=== PATIENT | female | born 1990 | race African-American/Black ===

== ENCOUNTER 2020-02-16 15:49 | Inpatient (IN) | payer OTHER ==
[~2020-02-16] VITALS: Ht 177.8 cm; Wt 84.8 kg
[2020-02-16] MEDS ORDERED: MAGNESIUM/ALUMINUM HYDROXIDE/SIMETHICONE 30ML UDC PO STA (18:14)
[2020-02-16] MEDS ORDERED: ONDANSETRON HCL 4MG/2ML INJ IV STA (18:14)
[2020-02-16] MEDS ORDERED: VISCOUS LIDOCAINE 2% 15 ML UDC PO STA (18:14)
[2020-02-16] MEDS ORDERED: SODIUM CHLORIDE 0.9% 1,000 ML IV ONE (18:15)
[2020-02-16 18:26] LABS: HEMATOCRIT. 39.1 % (36.0-48.0); HEMOGLOBIN. 13.2 g/dL (12.0-16.0); MEAN CORPUSCULAR HEMOGLOBIN 32.1 pg (28.0-32.0); MEAN PLATELET VOLUME 8.6 fl (7.4-10.4); PLATELET 410 x1000/uL (130-400); RED BLOOD CELL COUNT 4.11 mill/uL (4.2-5.4); RED CELL DISTRIBUTION WIDTH 13.2 % (11.6-14.6)
[2020-02-16 18:35] LABS: CHLORIDE 105 mEq/L (98-107)
[2020-02-16 18:37] LABS: CLARITY URINE CLEAR (CLEAR); COLOR URINE YELLOW (YELLOW); KETONES URINE NEGATIVE (NEGATIVE); LEUKOCYTE ESTERASE URINE TRACE (NEGATIVE); NITRITE URINE NEGATIVE (NEGATIVE); OCCULT BLOOD URINE NEGATIVE (NEGATIVE); PH URINE 8.5 (4.5-8.0); PROTEIN URINE 1+ (NEGATIVE); SPECIFIC GRAVITY URINE 1.029 (1.005-1.030)
[2020-02-16 18:43] LABS: HCG SCREEN NEGATIVE
[2020-02-16 18:59] LABS: PLATELET ESTIMATE INCREASED
[2020-02-16] MEDS ORDERED: KETOROLAC 15MG/ML VIAL IV ONE (20:45)
[2020-02-17] VITALS: BP 126/89
[2020-02-17 00:08] VITALS: BP 126/89
[2020-02-17] MEDS ORDERED: ONDANSETRON HCL 4MG/2ML INJ IV PRN (01:15)
[2020-02-17] MEDS: CEFTRIAXONE 1,000 MG in DEXTROSE 5% WATER 50 ML IV SCH (03:17)
[2020-02-17 04:00] VITALS: BP 111/57
[2020-02-17] MEDS ORDERED: POTASSIUM CHLORIDE 20MEQ TABLET SR PO SCH (05:15)
[2020-02-17 08:00] VITALS: BP 116/79
[2020-02-17] MEDS: FAMOTIDINE 20MG TABLET PO SCH ×2 (09:34→16:43)
[2020-02-17 12:00] VITALS: BP 112/71
[2020-02-17 12:22] LABS: BASOPHILS % 0.6 % (0.0-2.0); EOSINOPHILS % 0.1 % (0.0-5.0); HEMATOCRIT. 36.7 % (36.0-48.0); HEMOGLOBIN. 12.6 g/dL (12.0-16.0); LYMPHOCYTES % 17.3 % (20.0-50.0); MEAN CORPUSCULAR HEMOGLOBIN 32.3 pg (28.0-32.0); MEAN CORPUSCULAR VOLUME 94.2 fL (81.0-99.0); MEAN PLATELET VOLUME 7.9 fl (7.4-10.4); MONOCYTES % 9.7 % (2.0-8.0); NEUTROPHILS % 72.3 % (40.0-76.0); PLATELET 346 x1000/uL (130-400); RED BLOOD CELL COUNT 3.89 mill/uL (4.2-5.4); RED CELL DISTRIBUTION WIDTH 13.7 % (11.6-14.6)
[2020-02-17 13:45] LABS: CHLORIDE 109 mEq/L (98-107)
[2020-02-17] MEDS ORDERED: DEXT 5%/0.45% NACL 1000ML 1,000 ML IV SCH (14:15)
[2020-02-17] MEDS ORDERED: VISCOUS LIDOCAINE 2% 15 ML UDC MM PRN (15:00)
[2020-02-17 20:00] VITALS: BP 128/80
[2020-02-18] VITALS: BP 114/70
[2020-02-18] MEDS: HYDROCODONE/ACETAMINOPHEN 5/325MG TABLET PO PRN ×2 (00:45→09:17)
[2020-02-18] MEDS: CEFTRIAXONE 1,000 MG in DEXTROSE 5% WATER 50 ML IV SCH (00:59)
[2020-02-18 04:00] VITALS: BP 118/75
[2020-02-18 06:59] LABS: EOSINOPHILS % 0.6 % (0.0-5.0); HEMATOCRIT. 34.7 % (36.0-48.0); MEAN CORPUSCULAR HEMOGLOBIN 32.8 pg (28.0-32.0); MEAN CORPUSCULAR VOLUME 94.5 fL (81.0-99.0); MEAN PLATELET VOLUME 8.7 fl (7.4-10.4); MONOCYTES % 11.8 % (2.0-8.0); NEUTROPHILS % 62.6 % (40.0-76.0); PLATELET 309 x1000/uL (130-400); RED BLOOD CELL COUNT 3.67 mill/uL (4.2-5.4); RED CELL DISTRIBUTION WIDTH 14.2 % (11.6-14.6)
[2020-02-18 07:12] LABS: CHLORIDE 107 mEq/L (98-107)
[2020-02-18] MEDS ORDERED: BARIUM SULFATE 176 GM SUSP.RECON ONE (07:25)
[2020-02-18] MEDS ORDERED: SIMETHICONE/SOD BICARB/CIT AC 1 EACH GRAN.EF.PK ONE (07:26)
[2020-02-18] MEDS ORDERED: EZ-HD SUSPENSION(BARIUM SULFATE 340GM) PO ONE (07:26)
[2020-02-18 08:00] VITALS: BP 118/80
[2020-02-18 08:11] LABS: *AMPHETAMINES SCREEN URINE NEGATIVE (NEGATIVE); *BARBITURATES SCREEN URINE NEGATIVE (NEGATIVE); *BENZODIAZEPINES SCREEN URINE NEGATIVE (NEGATIVE); *COCAINE SCREEN URINE NEGATIVE (NEGATIVE); METHADONE URINE SCREEN NEGATIVE (NEGATIVE)
[2020-02-18 08:12] LABS: OPIATES URINE SCREEN NEGATIVE (NEGATIVE); PHENCYCLIDINE URINE SCREEN NEGATIVE (NEGATIVE)
[2020-02-18] MEDS ORDERED: POTASSIUM CHLORIDE 20MEQ/PACKET PO NR (08:15)
[2020-02-18 08:18] LABS: CANNABINOID URINE SCREEN PRESUMTIVE POSITIVE (NEGATIVE)
[2020-02-18] MEDS: FAMOTIDINE 20MG TABLET PO SCH (09:16)
[2020-02-18] MEDS ORDERED: MAGNESIUM/ALUMINUM HYDROXIDE/SIMETHICONE 30ML UDC PO PRN (11:00)
[2020-02-18] MEDS ORDERED: XLV MM (11:43)
[2020-02-18] MEDS ORDERED: FAMO-135 MT (11:43)
[2020-02-18] MEDS ORDERED: MYL30 PO (11:43)
[2020-02-18 13:56] VITALS: BP 139/90
== END 2020-02-18 14:10 | disposition home or self-care (01) | DRG 242 ==
LOC: ER 15:49 → 6EST 22:25 → EDBEDREQ 22:34 → EDBEDREQSVC 22:34 → ENRESERV 23:11
PROVIDERS: ADMIT Internal Medicine; ATTEND Internal Medicine
DX: K22.6 Gastro-esophageal laceration-hemorrhage syndrome (principal); K22.8 Other specified diseases of esophagus; F17.210 Nicotine dependence, cigarettes, uncomplicated; F12.90 Cannabis use, unspecified, uncomplicated; E87.6 Hypokalemia; J98.11 Atelectasis; N39.0 Urinary tract infection, site not specified; Z98.891 History of uterine scar from previous surgery
CPT/HCPCS: 36415; 71045; 71250; 74220; 80048; 80053; 80305; 81003; 84443; 84703; 85025; 93005; 99285; C1893; J0696; J1885; J2405; J7030; J7040; J7060; J7517

== ENCOUNTER 2022-08-08 06:06 | Emergency (ER) | payer MEDICAID ==
[~2022-08-08] VITALS: Ht 177.8 cm; Wt 88.0 kg
[~2022-08-08 06:06] MED LIST: FAMO-135 MT; MYL30 PO; XLV MM
[2022-08-08] MEDS ORDERED: OXYC-100 PO (06:25)
[2022-08-08 06:30] VITALS: BP 128/98
[2022-08-08] MEDS ORDERED: OXYCODONE HCL/ACETAMINOPHEN 5/325MG TABLET PO ONE (06:30)
[2022-08-08] MEDS ORDERED: KETOROLAC 30MG/ML VIAL IV ONE (06:30)
== END 2022-08-08 06:35 | disposition home or self-care (01) ==
LOC: ER 06:06
DX: K08.89 Other specified disorders of teeth and supporting structures (principal); F12.10 Cannabis abuse, uncomplicated
CPT/HCPCS: 81025; 96374; 99283; J1885

== ENCOUNTER 2022-08-08 20:24 | Emergency (ER) | payer MEDICAID, OTHER ==
[~2022-08-08] VITALS: Ht 175.3 cm; Wt 78.0 kg
[~2022-08-08 20:24] MED LIST changes: +OXYC-100 PO
[2022-08-08 21:30] VITALS: BP 137/102
[2022-08-08] MEDS ORDERED: HYDROCODONE/ACETAMINOPHEN 5/325MG TABLET PO ONE (21:30)
[2022-08-08] MEDS ORDERED: KETOROLAC 30MG/ML VIAL IM ONE (21:30)
[2022-08-08] MEDS ORDERED: CEFTRIAXONE SODIUM 1 G/VIAL IM ONE (21:30)
[2022-08-08] MEDS ORDERED: BUPIVACAINE HCL/PF 0.75% (7.5MG/ML) 10ML INJ ONE (21:30)
== END 2022-08-08 23:03 | disposition home or self-care (01) ==
LOC: ER 20:24
DX: K04.7 Periapical abscess without sinus (principal); F12.10 Cannabis abuse, uncomplicated
CPT/HCPCS: 96372; 99284; J0696; J1885; J3490; Z7610